=== PATIENT | male | born 2000 | race Caucasian/White ===

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

== ENCOUNTER 2022-10-31 06:49 | Outpatient (REF) | payer OTHER, SELFPAY ==
[2022-10-31 11:37] LABS: MANUAL DIFF FLAG NO
[2022-10-31 11:38] LABS: Appearance Urine Clear; Color Urine Dark Yellow; Glucose Urine UA Negative (Negative); Leukocyte Esterase Urine Negative (Negative); Nitrite Urine Negative (Negative); PH 5.5 (5.0-9.0); Specific Gravity - Urine >= 1.030 (1.005-1.025); Urine Blood Negative (Negative); Urine Ketones Negative (Negative); Urine Protein Trace mg/dL (Neg-Trace)
[2022-10-31 11:52] LABS: Basophils Percent Auto 0.4 % (0-2); Eosinophils Absolute Auto 0.2 X10*3/uL (0.0-0.4); Eosinophils Percent Auto 2.1 % (0-4); Hematocrit 46.9 % (42.0-52.0); Hemoglobin 15.8 g/dl (14.0-18.0); Imm Gran Abs Auto 0.03 X10*3/uL (0.00-0.03); Imm Gran Pct Auto 0.4 % (0.0-0.4); Lymphocytes Absolute Auto 2.8 X10*3/uL (1.2-4.9); Lymphocytes Percent Auto 33.4 % (20-40); Mean Corpuscular HGB Conc 33.7 g/dl (31.0-36.0); Mean Corpuscular Hemoglobin 28.6 pg (27.0-33.0); Mean Corpuscular Volume 84.8 fL (80.0-98.0); Monocytes Absolute Auto 0.7 X10*3/uL (0.1-1.2); Monocytes Percent Auto 8.7 % (2-11); Neutrophils Absolute Auto 4.6 x10*3/uL (2.0-8.3); Platelet Count 231 X10*3/uL (160-400); Red Blood Count 5.53 X10*6/uL (4.60-5.80); Red Cell Distribution Width 12.4 % (11.0-16.0); White Blood Count 8.4 X10*3/uL (4.8-10.8)
[2022-10-31 12:18] LABS: Alanine Aminotransferase 29 U/L (0-40); Albumin Level 4.1 g/dL (3.5-5.0); Alkaline Phosphatase 73 U/L (39-117); Anion Gap 10 (12-20); Aspartate Amino Transferase 20 U/L (5-37); Bilirubin Total 1.1 mg/dL (0.0-1.0); Blood Urea Nitrogen 13 mg/dL (9-16); Calcium 9.5 mg/dL (8.4-10.2); Carbon Dioxide 29 mmol/L (22-29); Chloride 104 mmol/L (96-108); Cholesterol 186 mg/dL; Estimated Glomerular Filt Rate > 60; Glucose Fasting 85 mg/dL (60-99); HDL Cholesterol 33 mg/dL; LDL Cholesterol Calculated 124 mg/dl; Potassium 3.9 mmol/L (3.3-5.1); Sodium 139 mmol/L (135-145); Total Protein 6.8 g/dL (6.5-8.0); Triglycerides 145 mg/dL
[2022-10-31 12:24] LABS: TSH reflex Free T4 5.16 uIU/mL (0.32-4.0)
== END 2022-10-31 06:50 | disposition home or self-care (01) ==
LOC: HO.HMGCLDS 06:49
PROVIDERS: PCP Nurse Practitioner Family; Visit Provider Nurse Practitioner Family
DX: Z00.00 Encounter for general adult medical examination without abnormal findings (principal)
CPT/HCPCS: 36415; 80053; 80061; 81003; 84439; 84443; 85025

== ENCOUNTER 2022-11-25 09:50 | Outpatient (REF) | payer OTHER, SELFPAY | END 2022-11-25 09:51 | disposition home or self-care (01) | LOC: HO.HMGCLDS 09:50 | PROVIDERS: PCP Nurse Practitioner Family; Visit Provider Nurse Practitioner Family | DX: R94.6 Abnormal results of thyroid function studies (principal) | CPT/HCPCS: 36415; 84443; 86376 ==

== ENCOUNTER 2023-11-10 08:10 | Outpatient (AMB) | payer OTHER, SELFPAY ==
--- NOTE | 2023-11-10 08:18 | MHC.PC.OV ---
Vital Signs 11/10/23 08:20 Height 5 ft 11 in Weight 333 lb BMI 46.4 BP 118/80 Blood Pressure Location Lt brachial Position Sitting Pulse 78 Pulse Source Pulse Oximeter Pulse Oximetry (%) 99 Oxygen Delivery Method Room Air Intake Visit Reasons: Annual PE Intake Note: Patient here for physical exam. Allergies No Known Allergies Allergy (Verified 11/10/23 08:42) Medication List - Last Reconciled 11/10/23 by SRI Carver No Known Home Meds Tobacco use date assessed: 11/10/23 Dental Screening Dental Screen Date: 11/10/23 Did you have a dental visit in the last 12 months?: Yes Did you have a dental problem in the last 6 months where you did not have access to dental care?: No Was dental information given to patient?: Patient has dentist HPI Annual PE HPI Details Pt is here for a PE. Will order labs. Pt's last labs showed elevated TSH. Will continue to monitor, repeat labs ordered. Denies any excessive fatigue or constipation. [facility] Social History Housing: House Patient Tobacco Use Status: Never used Tobacco e-Cigarette/Vaping Use: Never Used Second Hand Smoke Exposure: No service: No Current occupational status: unemployed Cognitive needs: No Hearing needs: No Vision needs: No Questionnaire PHQ-9 Over the last 2 weeks, how often have you been bothered by any of the following problems? 58820 - PHQ-9 Billing: Patient declined-do not bill Source: Developed by Drs. Fidel De La Rosa, Kita Rogers, Leif Fink and colleagues, with an educational kamila from [employer]. Thrive Questionnaire Date Thrive assessed: 11/10/23 What is your living situation today?: I choose not to answer this question Within the past 12 months, did the food you bought not last and you didn't have the money to get more?: I choose not to answer this question Within the past 12 months, did you worry whether your food would run out before you got money to buy more?: I choose not to answer this question Do you have trouble paying for medicines?: I choose not to answer this question Do you have trouble getting transportation to medical appointments?: I choose not to answer this question Do you have trouble paying your heating and electricity bill?: I choose not to answer this question Do you have trouble taking care of your child, family member or friend?: I choose not to answer this question Do you have trouble with day-to-day activities such as bathing, preparing meals, shopping, managing finances, etc.?: I choose not to answer this question Are you currently unemployed and looking for a job?: I choose not to answer this question Are you interested in more education?: I choose not to answer this question Currently or been in a relationship where the following occur: I choose not to answer this question THRIVE Score: 0 AUDIT C Alcohol Use Questionnaire (AUDIT-C) 1. How often do you have a drink containing alcohol?: Monthly or less 2. How many drinks containing alcohol do you have on a typical day when you are drinking?: 1 or 2 3. How often do you have six or more drinks on one occasion?: Never Total Score: 1 Score Reviewed/Action Taken: No GABRIELA-7 AMB Questionnaire GABRIELA-7 Date GABRIELA - 7 assessed: 11/10/23 Source: Developed by Drs. Fidel De La Rosa, Kita Rogers, Leif Fink and colleagues, with an educational kamila from [employer]. GABRIELA-7 Assessment Billing GABRIELA-7 Assessment Tool: pt declined-do not bill Review of Systems Const Denies chills and Denies fever(s) Eyes Denies blurry vision ENT Denies vertigo, Denies dizziness and Denies sore throat Card Denies chest pain at rest, Denies chest pain with activity, Denies diaphoresis, Denies dyspnea and Denies dyspnea on exertion Resp Denies cough, Denies dyspnea, Denies dyspnea on exertion and Denies wheezing GI Denies abdominal pain, Denies melena, Denies hematochezia, Denies constipation, Denies diarrhea and Denies loose stools Denies hematuria Musc Denies numbness and Denies tingling Skin/Breast Denies lesions Neuro Denies vertigo, Denies dizziness, Denies numbness and Denies tingling Psych Denies anxiety, Denies depression, Denies homicidal ideation, Denies suicidal ideation and Denies other (substance abuse) Aller/Immun Denies wheezing Physical exam (Primary Care) Vital Signs: Last Vital Signs Pulse 78 06/17/24 08:20 BP 118/80 11/10/23 08:20 Pulse Ox 99 11/10/23 08:20 Oxygen Delivery Method Room Air 11/10/23 08:20 BMI result Body Mass Index 46.4 Tobacco/Smoking Status: Tobacco use Status Tobacco use date assessed 11/10/23 11/10/23 08:24 Patient Tobacco Use Status Never used Tobacco 11/10/23 08:20 e-Cigarette/Vaping Use Never Used 11/10/23 08:20 Thrive Assessment: Date of Thrive Assessment Date Thrive assessed 11/10/23 11/10/23 08:24 Currently or been in a relationship where the following occur: I choose not to answer this question Const General: cooperative Nutritional Appearance: obese morbidly obese Orientation/consciousness: patient oriented x3 HENMT Head: Yes normal to inspection, Yes normocephalic and Yes atraumatic Ears: TM's normal bilaterally Eyes General: appearance normal, both eyes and all related structures Alignment and Position: alignment normal and position normal Neck Neck: Yes normal visual inspection and Yes no lymphadenopathy Thyroid: Thyroid normal Resp Effort & Inspection: normal respiratory effort Auscultation: clear to auscultation bilaterally Cardio Rate: regular rate Rhythm: regular rhythm Heart sounds: S1 normal heart sound present, S2 normal heart sound present and no murmurs GI Palpation (GI): Soft to palpation and nontender Auscultation: normal bowel sounds Male General Exam: Yes normal external exam Penis: normal penis Scrotum: scrotum normal, testes descended bilaterally and no inguinal hernias Testes: no testicular mass Skin Rashes: no rashes Neuro General: patient oriented x3, moves all extremities, no focal motor deficits and deep tendon reflexes 2+ bilaterally Romberg Test: Negative Psych Appearance: grossly normal Mental Status: mental status grossly normal Speech and movement: Normal speech and movement present Affect: normal affect Attitude: cooperative Thought process: Normal thought process present Thought content: Normal thought content present Insight: Good insight present (Psych) Judgement: Good judgement present (Psych) Assessment and Plan Assessment & Plan (1) Encounter for routine adult physical exam with abnormal findings: Code(s): Z00.01 - Encounter for general adult medical examination with abnormal findings Plan: Labs ordered Plan The patient agreed to the use of a bilingual medical assistant for this encounter. Scribed for SRI Mirza by irvin Joseph scribe, on 11/10/2023 at 08:30 EST. Orders: Orders Complete Blood Count Auto Diff Today Z00.01 - Encounter for general adult medical examination with abnormal findings Comprehensive [place]. Panel Fast Today Z00. - Encounter for general adult medical examination with abnormal findings Lipid Panel Today Z00. - Encounter for general adult medical examination with abnormal findings TSH reflex Free T4 Today Z00.01 - Encounter for general adult medical examination with abnormal findings UA CC w/rflx Micro + Cult Today Z00.00 - Encounter for general adult medical examination without abnormal findings Thyroid Peroxidase Antibodies Today R79.89 - Other specified abnormal findings of blood chemistry Coding Level of Care Code Est Pt Prev Care 18-39y(03915) Diagnoses Encounter for routine adult physical exam with abnormal findings Z00.01
[2023-11-10 08:20] VITALS: BP 118/80; PULSE 78; O2SAT 99; BMI 46.4
== END 2023-11-10 08:34 | disposition home or self-care (01) ==
PROVIDERS: PCP Nurse Practitioner Family; Visit Provider Nurse Practitioner Family
DX: Z00.00 Encounter for general adult medical examination without abnormal findings (principal)
CPT/HCPCS: 99395

== ENCOUNTER 2023-11-10 08:37 | Outpatient (REF) | payer OTHER, SELFPAY ==
[2023-11-10 10:16] LABS: MANUAL DIFF FLAG NO
[2023-11-10 10:19] LABS: Basophils Percent Auto 0.7 % (0-2); Eosinophils Absolute Auto 0.2 X10*3/uL (0.0-0.4); Eosinophils Percent Auto 2.8 % (0-4); Hemoglobin 15.8 g/dl (14.0-18.0); Imm Gran Abs Auto 0.02 X10*3/uL (0.00-0.03); Imm Gran Pct Auto 0.3 % (0.0-0.4); Lymphocytes Percent Auto 34.2 % (20-40); Mean Corpuscular HGB Conc 34.3 g/dl (31.0-36.0); Mean Corpuscular Hemoglobin 28.7 pg (27.0-33.0); Mean Corpuscular Volume 83.5 fL (80.0-98.0); Monocytes Absolute Auto 0.5 X10*3/uL (0.1-1.2); Monocytes Percent Auto 8.7 % (2-11); Neutrophils Absolute Auto 3.1 x10*3/uL (2.0-8.3); Neutrophils Percent Auto 53.3 % (45-73); Platelet Count 224 X10*3/uL (160-400); Red Blood Count 5.51 X10*6/uL (4.60-5.80); Red Cell Distribution Width 12.9 % (11.0-16.0); White Blood Count 5.8 X10*3/uL (4.8-10.8)
[2023-11-10 10:57] LABS: Alanine Aminotransferase 33 U/L (0-40); Albumin Level 4.1 g/dL (3.5-5.0); Alkaline Phosphatase 62 U/L (39-117); Anion Gap 10 (12-20); Aspartate Amino Transferase 22 U/L (5-37); Bilirubin Total 0.7 mg/dL (0.0-1.0); Blood Urea Nitrogen 14 mg/dL (9-16); Calcium 9.5 mg/dL (8.4-10.2); Carbon Dioxide 28 mmol/L (22-29); Chloride 106 mmol/L (96-108); Cholesterol 175 mg/dL (<200); Estimated Glomerular Filt Rate > 60; Glucose Fasting 95 mg/dL (60-99); HDL Cholesterol 37 mg/dL (>40); LDL Cholesterol Calculated 109 mg/dL (<100); Potassium 3.8 mmol/L (3.3-5.1); Sodium 140 mmol/L (135-145); Total Protein 7.1 g/dL (6.5-8.0); Triglycerides 145 mg/dL (<150)
[2023-11-10 10:57] LABS: Appearance Urine Turbid; Color Urine Dark Yellow; Glucose Urine UA Negative (Negative); Leukocyte Esterase Urine Negative (Negative); Nitrite Urine Negative (Negative); PH 5.5 (5.0-9.0); Specific Gravity - Urine >= 1.030 (1.005-1.025); Urine Blood Negative (Negative); Urine Ketones Negative (Negative); Urine Protein Negative (Neg-Trace)
[2023-11-10 11:05] LABS: TSH reflex Free T4 3.33 uIU/mL (0.32-4.0)
[2023-11-11 23:03] LABS: Thyroid Peroxidase Antibodies <1 IU/mL (<9)
== END 2023-11-10 08:38 | disposition home or self-care (01) ==
LOC: HO.HMGCLDS 08:37
PROVIDERS: PCP Nurse Practitioner Family; Visit Provider Nurse Practitioner Family
DX: Z00.01 Encounter for general adult medical examination with abnormal findings (principal); R79.89 Other specified abnormal findings of blood chemistry
CPT/HCPCS: 36415; 80053; 80061; 81003; 84443; 85025; 86376

== ENCOUNTER 2024-11-17 15:50 | Outpatient (AMB) | payer OTHER, SELFPAY ==
--- NOTE | 2024-11-17 15:55 | A.OFFPC_ITS ---
Vital Signs 11/17/24 15:56 Height 5 ft 11 in Weight 305 lb BMI 42.5 BP 138/86 Blood Pressure Location Rt brachial Position Sitting Pulse 76 Pulse Source Pulse Oximeter Pulse Oximetry (%) 96 Oxygen Delivery Method Room Air Intake Visit Reasons: Annual PE Rn Immunology Required: No Accompanied by: Self / Same As Patient Allergies pollen extracts Allergy (Mild, Verified 11/17/24 16:08) Runny Nose Medication List - Last Reconciled 11/17/24 by MEGAN Carver No Known Home Meds Tobacco use date assessed: 11/17/24 Dental Screening Dental Screen Date: 11/17/24 Did you have a dental visit in the last 12 months?: Yes Did you have a dental problem in the last 6 months where you did not have access to dental care?: No Was dental information given to patient?: Patient has dentist HPI Annual PE HPI Details History of Present Illness The patient is a 24-year-old male presenting with a request for a physical exam. He reports being morbidly obese and has recently started working overnight shifts. The patient denies experiencing any chest pain, dyspnea, abdominal pain, hematochezia, constipation, or diarrhea. He does report having eczema located on the left antecubital region. Health Maintenance Social History - Employment: Recently started working o vernight shifts Review of Systems - Cardiovascular: Denies chest pain - Respiratory: Denies dyspnea - Gastrointestinal: Denies abdominal adelfo n, hematochezia, constipation, diarrhea - Dermatological: Reports eczema on the left antecubital region Physical Exam General: Cooperative, healthy appearing, comfortable, no acute distress and well developed, morbidly obese Orientation: Patient oriented x3 Limitations: No limitations Head: Normal to inspection Ears: Hearing grossly normal bilaterally Nose: Normal external nose present Face and sinus: Normal facial exam Eyes: Appearance normal, both eyes and all related structures Neck: Normal visual inspection and Yes full ROM Respiratory: Normal respiratory effort and able to speak in complete sentences. Clear to auscultation bilaterally Cardiovascular: Regular rate and rhythm. Normal S1 and S2 GI: Normal to inspection. Soft to palpation and nontender : testicles without masses/lesions and no hernias appreciated Skin: No rashes or lesions noted, small area of eczema in the AC region, left side Neuro: Patient oriented x3 Extremities: Normal to inspection Results Plan The patient was advised to apply hydrocortisone cream to the affected area of eczema on the left antecubital region. He was encouraged to undergo fasting laboratory tests in the near future to monitor his health status, particularly considering his morbid obesity. Patient Instructions - Apply hydrocortisone cream to the ecze ma on your left arm as directed. - Schedule and complete fasting lab test s soon. [facility] Surgical History No pertinent past surgical history Social History Housing: House Patient Tobacco Use Status: Never used Tobacco e-Cigarette/Vaping Use: Never Used Second Hand Smoke Exposure: No service: No Current occupational status: employed Cognitive needs: No Hearing needs: No Vision needs: No Questionnaire PHQ-9 Over the last 2 weeks, how often have you been bothered by any of the following problems? 1. Little interest or pleasure in doing things: not at all 2. Feeling down, depressed, or hopeless: not at all 3. Trouble falling or staying asleep, or sleeping too much: not at all 4. Feeling tired or having little energy: not at all 5. Poor appetite or overeating: not at all 6. Feeling bad about yourself - or that you are a failure or have let yourself or your family down: not at all 7. Trouble concentrating on things, such as reading the newspaper or watching television: not at all 8. Moving or speaking so slowly that other people could have noticed. Or the opposite - being so fidgety or restless that you have been moving around a lot more than usual: not at all 9. Thoughts that you would be better off or of hurting yourself in some way: not at all Total score: 0 Depression Screening Interpretation: Negative Depression Screening Done: Yes 98616 - PHQ-9 Billing: Yes Source: Developed by Drs. Fidel De La Rosa, Kita Rogers, Leif Fink and colleagues, with an educational kamila from [employer]. Thrive Questionnaire Date Thrive assessed: 11/17/24 I am a: Patient What is your living situation today?: I have a steady place to live Within the past 12 months, did the food you bought not last and you didn't have the money to get more?: Never true Within the past 12 months, did you worry whether your food would run out before you got money to buy more?: Never true Do you have trouble paying for medicines?: No Do you have trouble getting transportation to medical appointments?: No Do you have trouble paying your heating and electricity bill?: No Do you have trouble taking care of your child, family member or friend?: No Do you have trouble with day-to-day activities such as bathing, preparing meals, shopping, managing finances, etc.?: No Are you currently unemployed and looking for a job?: No Are you interested in more education?: No Please select the resources that you would like help with: None Currently or been in a relationship where the following occur: No concerns reported THRIVE Score: 0 AUDIT C Alcohol Use Questionnaire (AUDIT-C) 1. How often do you have a drink containing alcohol?: Monthly or less 2. How many drinks containing alcohol do you have on a typical day when you are drinking?: 3 or 4 3. How often do you have six or more drinks on one occasion?: Less than monthly Total Score: 3 Score Reviewed/Action Taken: Yes GABRIELA-7 AMB Questionnaire GABRIELA-7 Date GABRIELA - 7 assessed: 11/17/24 Feeling nervous, anxious, or on edge: 0 = Not at all Not being able to stop or control worryin = Not at all Worrying too much about different things: 0 = Not at all Trouble relaxin = Not at all Being so restless that it is hard to sit still: 0 = Not at all Becoming easily annoyed or irritable: 0 = Not at all Feeling afraid as if something awful might happen: 0 = Not at all Total GABRIELA-7 score (0-4 normal; 5-9 mild; 10-14 moderate; 15-21 severe): 0 Source: Developed by Drs. Fidel De La Rosa, Kita Rogers, Leif Fink and colleagues, with an educational kamila from [employer]. GABRIELA-7 Assessment Billing GABRIELA-7 Assessment Tool: GABRIELA-7 Assessment 05460 Physical exam (Primary Care) Vital Signs: Last Vital Signs Pulse 76 11/17/24 15:56 BP 138/86 11/17/24 15:56 Pulse Ox 96 11/17/24 15:56 Oxygen Delivery Method Room Air 11/17/24 15:56 BMI result Body Mass Index 42.5 Tobacco/Smoking Status: Tobacco use Status Tobacco use date assessed 11/17/24 11/17/24 16:04 Patient Tobacco Use Status Never used Tobacco 11/17/24 16:04 e-Cigarette/Vaping Use Never Used 11/17/24 16:04 PHQ-9: PHQ-9 Score PHQ-9: Total score 0 11/17/24 16:04 Depression Screening Interpretation: Negative Thrive Assessment: Date of Thrive Assessment Date Thrive assessed 11/17/24 11/17/24 16:04 Currently or been in a relationship where the following occur: No concerns reported Coding Level of Care Code Est Pt Prev Care 18-39y(48275) Diagnoses Encounter for routine adult physical exam with abnormal findings Z. Additional Codes GABRIELA-7 Assessment Billing - GABRIELA-7 Assessment Tool: GABRIELA-7 Assessment 01257 ([id number]) PHQ-9 - 91107 - PHQ-9 Billing: Yes ([id number]) Assessment & Plan Assessment & Plan (1) Encounter for routine adult physical exam with abnormal findings: Code(s): Z00. - Encounter for general adult medical examination with abnormal findings Category: Medical Plan . Orders: Orders Complete Blood Count Auto Diff Today Z. - Encounter for general adult medical examination with abnormal findings Comprehensive [place]. Panel Fast Today Z. - Encounter for general adult medical examination with abnormal findings Lipid Panel Today Z. - Encounter for general adult medical examination with abnormal findings TSH reflex Free T4 Today Z00. - Encounter for general adult medical examination with abnormal findings UA CC w/rflx Micro + Cult Today Z00. - Encounter for general adult medical examination with abnormal findings Medications: New hydrocortisone 2.5% 1 appl topical BID PRN 30 grams 0RF skin irritation
[2024-11-17 15:56] VITALS: BP 138/86; PULSE 76; O2SAT 96; BMI 42.5
--- OUTSIDE RECORDS SUMMARY | 2024-11-17 18:32 | XMS_ITS | Clinical Summary ---
Author Organization [facility] Address [address] [place] [address] Phone Care Team Providers Care Nuclear Radiation Engineer Name Role Phone Unavailable Primary Care Provider Unavailabl e Allergies No known active allergies Medications No known medications Active Problems Problem Noted Date Diagnosed Date Family history of diabetes mellitus in father Overview (12/24/2018): So is at risk Family history of hyperlipidemia 12/24/2018 Overview (12/24/2018): At risk Family history of hypertension in father 019 Overview (12/24/2018): At risk Morbid obesity with BMI of 40.0-44.9, adult 11/24 Overview (12/16/2017): need to cut out sugary cereals, and juice and amount of ice cream, lots of protein and veggies and fruits, few carbs, sugar. Assessment & Plan (09/22/2020 11:34 AM EDT): I strongly suggest seeing a auto body service mechanic, eat more veggies, fruits. Red meat only several times a week, Pizza only as a treat. Assessment & Plan (10/22/2019 3:30 PM EDT): Talked about motivation for change. Eat lots of eggs, lean meat, fish, vegetables, fruit, milk, water No sugary drinks. Assessment & Plan (12/24/2018 10:41 AM EDT): Continues to gain weight, at high risk for diabetes, hypertensions, hyperlipidemia. Halo nevus 12/16/2017 Overview (12/16/2017): benign Immunizations Immunization Administration Dates Next Due DTaP 5 11/25/2006, 4,02/01/2003,11/29,2002 H1N1 06/27/2009,05/10/2009 HPV Vaccine 9 Valent 06/21/2016,02/16/2016,12/10 Hep A, ped/adol 12/11/2015,05/20/2014 Hep B, ped/adol 04/29/2003,02/01/2003,2002 Hib (PRP-T) 10/31/2003, 3,2002,09/27 IPV 11/25/2006, 3,2002,09/27 Influenza, injectable, MDCK, preservative free, quadrivalent 02/21/2019 Influenza, injectable, quadr ivalent, preservative free 03/11/2020,02/16/2016 Influenza, injectable, trivalent 05/10/2009 Influenza, intranasal, quadrivalent 05/20/2014,1 07/05/2012 Influenza, intranasal, trivalent 04/27/2012,12/26,01/23/2010 MMR 07/28/2003 MMRV 11/25/2006 Meningococcal B Trumenba 09/22/2020 Meningococcal Conj (Menactra) MCV4P 12/24/2018,1 07/21/2013 Pneumococcal Conjugate 02/13/2004,2002,2002,09/27 Tdap 05/20/2014 Varicella 07/28/2003 Family History Medical History Relation Name Comments No Known Problems Brother Diabetes Father Hyperlipidemia Father Hypertension Father Kidney disease Father Lung cancer Father No Known Problems Mother Heart disease (Premature) Mother's Brother Relation Name Status Comments Brother Alive Brother: Alive and well Father Alive Father: Diabete s mellitus type 2, Alive and well, Hypertension, Hyperlipidemia Mother Alive Mother: Alive a nd well Mother's Brother Other Family history of Obesity, Family history of Diabetes mellitus, Family history of Coronary artery disease Social History Tobacco Use Types Packs/Day Years Used Date Smoking Tobacco: Never Smokeless Tobacco: Never Comments:Never smoker Alcohol Use Standard Drinks/Week Comments No 0 (1 standard drink = 0.6 oz pur e alcohol) Hunger/Food Answer Date Recorded In the last 12 months, did y ou or your family ever eat less than you felt you should because there wasn't enough money for food? No 09/22/2020 Stable Housing Answer Date Recorded Are you worried that in the next 2 months you may not have stable housing? No 09/22/2020 Transportation Concerns Answer Date Rec orded In the last 12 months, have you or your family ever had to go without healthcare because you didn't have a way to get there? No 09/22/2020 Hazards in Home Answer Date Recorded Think about the place you li ve. Do you have problems with any of the following? Pests (mice or roaches), mold, no/not working smoke detectors, water leaks, no window guards. No 2020 Financing Utilities Answer Date Recorde d In the last 12 months, has t he electric, gas, oil, or water company threatened to shut off your services in your home? No 09/22/2020 Safety at Home Answer Date Recorded Are you or your family worried about feeling saf e in your home? No 09/22/2020 Outside Support Answer Date Recorded Do you feel that you need mo re support from other people or programs to help you care for yourself or your family? No 09/22/2020 Understanding Health Concerns Answer Da te Recorded Do you need help understandi ng your or your child's healthcare needs (diagnosis, medications, plan, etc.)? No 09/22/2020 Financing Health Concerns Answer Date R ecorded In the last 12 months, was t here a time when your child needed to see a doctor or get medications or supplies but could not because of cost? No 09/22/2020 Missing School or Work Answer Date Leon rded Did you or your child miss s chool or work because of a health problem that could have been avoided? No 09/22/2020 Sex and Gender Information Value Date Recorded Sex Assigned at Male 10/22/2019 4:38 PM EDT Legal Sex Male 4:42 PM EDT Gender Identity Male 10/22/2019 4:38 PM EDT Sexual Orientation Straight 10/22/2019 4: 38 PM EDT Last Filed Vital Signs Vital Sign Reading Time Taken Comments Blood Pressure 128/80 09/22/2020 11:00 AM EDT Pulse 67 09/22/2020 11:00 AM EDT Temperature 36.2 C (97.1 F) 09/22/2020 11:00 AM EDT Respiratory Rate - - Oxygen Saturation - - Inhaled Oxygen Concentration - - Weight 139 kg (306 lb) 09/22/2020 11:00 AM EDT Height 175.9 cm (5' 9.25 ) 09/22/2020 11:00 AM E DT Body Mass Index 44.86 09/22/2020 11:00 AM EDT Plan of Treatment Health Maintenance Due Date Last Done Comments Men B Vaccine (2 of 2 - Trum enba SCDM 2-dose series) 03/24/2021 09/22/2020 Influenza Vaccines (#1) 2023 06/06/19, 03/11/2020, 02/21/2019, Additional history exists COVID-19 Vaccine (4 - 2023-2 5 season) 2024 06/06/2021, 11/15/2020, 10/25/2020 DTaP,Tdap,and Td Vaccines (7 - Td or Tdap) 05/20/2024 05/20/2014, 11/25/2006, 02/13/2004, Additional history exists Hepatitis B Vaccines Completed 04/29/2003, 02/01/2003, 2002 HIB Vaccines Completed 10/31/2003, 01/2003, 2002, Additional history exists Pneumococcal Vaccine Completed 02/13/2004, 02/01/2003, 2002, Additional history exists IPV Vaccines Completed 11/25/2006, 09/2002, 2002, Additional history exists MMR Vaccines Completed 11/25/2006, 07/28/2003 Varicella Vaccines Completed 11/25/2006, 07/28/2003 Hepatitis A Vaccines Completed 12/11/2015, 05/20/20 14 HPV Vaccines Completed 06/21/2016, 01/25, 12/11/2015 Meningococcal Vaccine Completed 12/24/2018, 014
== END 2024-11-17 16:18 | disposition home or self-care (01) ==
LOC: HO.HMCC 15:50
PROVIDERS: PCP Nurse Practitioner Family; Visit Provider Nurse Practitioner Family
DX: Z00.01 Encounter for general adult medical examination with abnormal findings (principal)

== ENCOUNTER → 2024-11-17 15:50 | Outpatient (BNVA) | payer OTHER, SELFPAY | PROVIDERS: PCP Nurse Practitioner Family; Visit Provider Nurse Practitioner Family | DX: Z00.01 Encounter for general adult medical examination with abnormal findings (principal) | CPT/HCPCS: 96127 ==

== ENCOUNTER 2024-11-19 07:34 | Outpatient (REF) | payer OTHER, SELFPAY ==
--- OUTSIDE RECORDS SUMMARY | 2024-11-19 07:37 | XMS_ITS | Clinical Summary ---
Author Organization [facility] Address [address] [place] [address] Phone Care Team Providers Care Family Preservation Caseworker Name Role Phone Unavailable Primary Care Provider [...] AM EDT): I strongly suggest seeing a ccna, eat more veggies, fruits. Red meat only [...]
[2024-11-19 10:27] LABS: MANUAL DIFF FLAG NO
[2024-11-19 10:40] LABS: Basophils Percent Auto 0.5 % (0-2); Eosinophils Absolute Auto 0.1 X10*3/uL (0.0-0.4); Eosinophils Percent Auto 1.1 % (0-4); Hemoglobin 16.4 g/dl (14.0-18.0); Imm Gran Abs Auto 0.02 X10*3/uL (0.00-0.03); Imm Gran Pct Auto 0.3 % (0.0-0.4); Lymphocytes Absolute Auto 1.7 X10*3/uL (1.2-4.9); Lymphocytes Percent Auto 26.7 % (20-40); Mean Corpuscular HGB Conc 34.2 g/dl (31.0-36.0); Mean Corpuscular Hemoglobin 28.7 pg (27.0-33.0); Mean Corpuscular Volume 84.1 fL (80.0-98.0); Mean Platelet Volume 10.6 fL (9.4-12.4); Monocytes Absolute Auto 0.5 X10*3/uL (0.1-1.2); Monocytes Percent Auto 8.4 % (2-11); Neutrophils Absolute Auto 3.9 x10*3/uL (2.0-8.3); Platelet Count 264 X10*3/uL (160-400); Red Blood Count 5.71 X10*6/uL (4.60-5.80); Red Cell Distribution Width 12.8 % (11.0-16.0); White Blood Count 6.2 X10*3/uL (4.8-10.8)
[2024-11-19 10:50] LABS: Alanine Aminotransferase 26 U/L (0-40); Albumin Level 4.7 g/dL (3.5-5.0); Alkaline Phosphatase 65 U/L (39-117); Anion Gap 13 (12-20); Aspartate Amino Transferase 27 U/L (5-37); Blood Urea Nitrogen 13 mg/dL (9-16); Calcium 9.5 mg/dL (8.4-10.2); Carbon Dioxide 26 mmol/L (22-29); Chloride 104 mmol/L (96-108); Cholesterol 162 mg/dL (<200); Estimated Glomerular Filt Rate > 60; Glucose Fasting 84 mg/dL (60-99); HDL Cholesterol 40 mg/dL (>40); LDL Cholesterol Calculated 102 mg/dL (<100); Sodium 139 mmol/L (135-145); Total Protein 7.5 g/dL (6.5-8.0); Triglycerides 104 mg/dL (<150)
[2024-11-19 11:20] LABS: TSH reflex Free T4 2.56 uIU/mL (0.32-4.0)
[2024-11-19 13:08] LABS: Appearance Urine Turbid; Color Urine Dark Yellow; Glucose Urine UA Negative (Negative); Leukocyte Esterase Urine Negative (Negative); Nitrite Urine Negative (Negative); PH 5.5 (5.0-9.0); Specific Gravity - Urine >= 1.030 (1.005-1.025); UMIC TRIGGER UACC YES; Urine Blood Negative (Negative); Urine Ketones Trace mg/dL (Negative); Urine Protein 30 (1+) mg/dL (Neg-Trace)
[2024-11-19 13:15] LABS: Bacteria Urine None Seen (None Seen); Hyaline Casts Urine 0-2 /LPF (0-2); RBC Urine 0-2 /HPF (0-2); Squamous Epithelial Cell Urine 0-2 /HPF (0-2); WBC Urine 0-5 /HPF (0-5)
== END 2024-11-19 07:35 | disposition home or self-care (01) ==
LOC: HO.HMGCLDS 07:34
PROVIDERS: PCP Nurse Practitioner Family; Visit Provider Nurse Practitioner Family
DX: Z00.01 Encounter for general adult medical examination with abnormal findings (principal); Z13.6 Encounter for screening for cardiovascular disorders
CPT/HCPCS: 36415; 80053; 80061; 81001; 81003; 84443; 85025